=== PATIENT | male | born 1965 | race Caucasian/White ===

== ENCOUNTER 2018-06-24 12:14 | Day surgery (SDC) | payer OTHER ==
[~2018-06-24 12:14] MED LIST: CLINDAMYCIN 600 MG/D5W (PMX) 50 ML IVPB; SOD CHLORIDE 0.9% 1,000 ML IV
[2018-06-24 13:28] LABS: INR 0.94; PROTIME 12.7 Sec (11.9-14.9)
[2018-06-24 13:29] LABS: PARTIAL THROMBOPLASTIN TIME 28.8 Sec (25.0-35.0)
[2018-06-24] MEDS ORDERED: SOD CHLORIDE 0.9% 1,000 ML IV (14:00)
[2018-06-24] MEDS ORDERED: POLYMYXIN/BACITRACIN 1L IRRIG (16:17)
[2018-06-24] MEDS ORDERED: MIDAZOLAM 1 MG/ML 2 ML INJ (16:50)
[2018-06-24] MEDS ORDERED: morphine (1 MG/ML) 10ML SYRINGE IV ×2 (17:00)
[2018-06-24] MEDS ORDERED: DIPHENHYDRAMINE 50 MG INJ IV (17:00)
[2018-06-24] MEDS: BUPIVACAINE 0.25% (MPF) 30 ML INJ (17:15)
[2018-06-24] MEDS ORDERED: NEOSTIGMINE 3 MG/3 ML SYRINGE (17:32)
[2018-06-24] MEDS ORDERED: ROCURONIUM 50 MG INJ (17:32)
[2018-06-24] MEDS ORDERED: LIDOCAINE 2% (SDV) 5 ML INJ (17:32)
[2018-06-24] MEDS ORDERED: GLYCOPYRROLATE 0.4 MG INJ (17:32)
[2018-06-24] MEDS ORDERED: PROPOFOL 20 ML (17:32)
[2018-06-24] MEDS ORDERED: CEFAZOLIN 1 GM INJ (17:32)
[2018-06-24] MEDS ORDERED: ONDANSETRON 4 MG INJ (17:33)
[2018-06-24] MEDS: FENTAnyl 50 MCG/ML VIAL IV ×5 (17:49→18:54)
[2018-06-24] MEDS: ONDANSETRON 4 MG INJ IV (17:50)
[2018-06-24] MEDS: MEPERIDINE 25 MG INJ IV (17:50)
[2018-06-24] MEDS: HYDROCODONE/APAP (5/325) TAB PO (18:28)
== END 2018-06-24 19:00 | disposition home or self-care (01) ==
LOC: SDS 19:00
DX: K40.30 Unilateral inguinal hernia, with obstruction, without gangrene, not specified as recurrent (principal); E78.5 Hyperlipidemia, unspecified; F17.200 Nicotine dependence, unspecified, uncomplicated
CPT/HCPCS: 49507; 85610; 85730